=== PATIENT | male | born 1960 | race American Indian/Alaskan Native ===

== ENCOUNTER 2019-04-03 11:07 | Outpatient (CLI) | payer OTHER ==
--- NOTE | 2019-04-03 11:58 | XRay Report ---
ABDOMEN 2 VIEW(S) INDICATION / CLINICAL INFORMATION: R10.31 ABDOMINAL PAIN RIGHT LOWER QUADRANT. COMPARISON: None available. FINDINGS: TUBES / LINES: None. BOWEL GAS PATTERN: No significant abnormality. FREE AIR / EXTRALUMINAL GAS: None seen. ADDITIONAL FINDINGS: Multiple surgical suture lines are identified in the abdomen, correlate with blossom gical history. IMPRESSION: No acute abdominal process is identified. Signer Name: Morgan David Jr, MD Signed: 04/03/2019 11:53 AM Workstation Name: [id number]
== END 2019-04-03 11:08 | disposition home or self-care (01) ==
LOC: XRAY 11:07
PROVIDERS: ATTEND Internal Medicine
DX: R10.31 Right lower quadrant pain (principal)
CPT/HCPCS: 74019